=== PATIENT | male | born 1950 | race Caucasian/White ===

== ENCOUNTER 2019-07-16 04:56 | Emergency (ER) | payer MEDICARE ==
[~2019-07-16] VITALS: Ht 177.8 cm; Wt 83.9 kg
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
--- NOTE | 2019-07-16 05:32 | NUR ---
XRAY AT BEDSIDE
[2019-07-16 06:58] VITALS: BP 131/71
--- NOTE | 2019-07-16 06:58 | NUR ---
Patient discharged to home in stable condition. Written and verbal after care instructions given. Patient verbalizes understanding of instruction. ambulatory with a steady gait
== END 2019-07-16 06:58 | disposition home or self-care (01) ==
LOC: ER 04:58
DX: S50.311A Abrasion of right elbow, initial encounter (principal); S60.511A Abrasion of right hand, initial encounter; M19.90 Unspecified osteoarthritis, unspecified site; Z88.8 Allergy status to other drugs, medicaments and biological substances; W22.8XXA Striking against or struck by other objects, initial encounter; Y93.01 Activity, walking, marching and hiking; Y92.89 Other specified places as the place of occurrence of the external cause; Y99.8 Other external cause status
CPT/HCPCS: 71100-TC; 73030-TC